=== PATIENT | female | born 1980 | race Two or more races ===

== ENCOUNTER → 2025-08-07 | Outpatient (CLI) | payer BC, SELFPAY ==
[2025-08-07 07:50] LABS: Collection Type, Urine Clean Catch
[2025-08-07 08:39] LABS: Basophils # (Auto) 0.1 Thou/mm3 (0.0-0.2); Basophils % (Auto) 1 % (0-2.5); Eosinophils # (Auto) 0.3 Thou/mm3 (0.0-0.5); Eosinophils % (Auto) 6 % (0-10); Hematocrit 23.1 % (36.0-46.0); Immature Granulocytes Auto 0.03 Thou/mm3 (0.00-0.00); Lymphocytes # (Auto) 2.0 Thou/mm3 (1.0-4.8); Lymphocytes % (Auto) 36 % (10-50); Mean Corpuscular HGB Conc 26.4 g/dl (31.0-37.0); Mean Corpuscular Hemoglobin 16.8 pg (25.0-35.0); Mean Corpuscular Volume 64 fL (80-100); Monocytes # (Auto) 0.4 Thou/mm3 (0.0-0.8); Monocytes % (Auto) 7 % (0-12); Neutrophils # (Auto) 2.8 Thou/mm3 (1.8-7.7); Neutrophils % (Auto) 50 % (37-80); Nucleated Red Blood Cell # 0.00 Thou/mm3 (0.00-0.00); Nucleated Red Blood Cell % 0 /100 WBC (0); Platelet Count 419 Thou/mm3 (140-440); RDW Standard Deviation 44.3 fL (36.4-46.3); Red Blood Count 3.64 Miln/mm3 (4.00-5.20); White Blood Count 5.5 Thou/mm3 (3.6-11.0)
[2025-08-07 08:42] LABS: Bilirubin,Urine Negative (Negative); Blood,Urine Negative (Negative); Clarity,Urine Clear (Clear/Hazy); Color,Urine Lt-Yellow (Lt Yel-Yel); Glucose, Urine Negative (Negative); Ketones,Urine Negative (Negative); Leukocyte Esterase,Urine Negative (Negative); Nitrite,Urine Negative (Negative); PH,Urine 7.5 (5.0-7.0); Protein,Urine Negative (Neg - Trace); RBC,Urine 3 /hpf (0-3); Specific Gravity,Urine 1.018 (1.001-1.035); Squamous Epithelial Cell,Urine 5 /hpf (0-5); Urobilinogen,Urine Negative mg/dL (0.0-1.0); WBC,Urine 1 /hpf (0-5)
[2025-08-07 08:49] LABS: Vitamin B12 341 pg/mL (211-911); Vitamin D 25 Hydroxy Total 28.3 ng/mL (7.3-40.2)
[2025-08-07 08:50] LABS: Ferritin 2 ng/mL (7.3-270.7)
[2025-08-07 08:51] LABS: Alanine Aminotransferase 13 U/L (10-49); Albumin, Serum 4.6 gm/dL (3.5-5.0); Albumin/Globulin Ratio 2.3 (1.2-2.2); Alkaline Phosphatase 52 U/L (46-116); Anion Gap 8 (7-16); Aspartate Amino Transferase 21 U/L (0-34); BUN/Creatinine Ratio 24 Ratio (12-20); Bilirubin,Total 0.5 mg/dL (0.3-1.2); Blood Urea Nitrogen 12 mg/dL (9-23); Calcium 8.8 mg/dL (8.3-10.6); Calcium (Corrected) 8.8 mg/dL (8.5-10.1); Carbon Dioxide 25.6 mMol/L (20.0-31.0); Cardiac Risk Estimate 3.3 RATIO (3.7-5.6); Chloride 106 mMol/L (98-107); Cholesterol 169 mg/dL (132-200); Creatinine (Component) 0.5 mg/dL (0.6-1.3); Globulin 2.0 gm/dL (2.3-3.5); Glucose 94 mg/dL (74-106); HDL Cholesterol 51 mg/dL (40-60); LDL Cholesterol,Calculated 105 mg/dL (0-130); Osmolality,Calculated 279 (275-295); Potassium 4.0 mMol/L (3.4-5.1); Sodium 140 mMol/L (136-145); Thyroid Stimulating Hormone 2.10 uIU/mL (0.55-4.78); Total Protein 6.6 gm/dL (5.7-8.2); Triglycerides 66 mg/dL (30-150); Uric Acid 3.4 mg/dL (3.1-7.8); eGFR > 60 See Note
[2025-08-07 09:01] LABS: Hemoglobin 6.1 g/dL (12.0-16.0)
[2025-08-07 09:57] LABS: Misc Send Out* See Sep Rpt
[2025-08-07 16:29] LABS: Path Review Blood Smear Sent to Pathologist
== END | disposition home or self-care (01) ==
LOC: COPL 07:07
PROVIDERS: PCP Internal Medicine; Referring Provider Internal Medicine; Visit Provider Internal Medicine
DX: Z00.00 Encounter for general adult medical examination without abnormal findings (principal); E78.5 Hyperlipidemia, unspecified
CPT/HCPCS: 36415; 80053; 80061; 81001; 82306; 82607; 82728; 83036; 84443; 84550; 85025

== ENCOUNTER 2025-08-24 07:16 | Emergency (ER) | payer BC, SELFPAY ==
--- NOTE | 2025-08-24 07:22 | XR_ITS ---
Examination: Pelvic ultrasound, transabdominal, complete Technique: Transabdominal ultrasound of the pelvis performed using grayscale imaging Date and time of exam: August 24, 2025, 0838 hours INDICATIONS: Irregular heavy bleeding and cramping beginning 3 days ago FINDINGS: Uterus 12.5 cm Uterine body area fibroid degeneration 3.3 x 2.4 x 5.1 cm Endometrial stripe 21 mm Right ovary obscured by bowel gas Left ovary 4.3 cm arterial flow, 30 x 34 mm cyst IMPRESSION: Uterine area fibroid degeneration 3.3 x 2.4 x 5.1 cm
[2025-08-24 07:24] VITALS: BP 143/91; PULSE 106; RESP 18; TEMP 36.8; O2SAT 100; BMI 25.2
--- NOTE | 2025-08-24 07:25 | PD.EDRME ---
Rapid Medical Screening Exam RME Arrival date/time: 08/24/25 07:16 45-year-old female presents to the Emergency Department today for complaint of vaginal bleeding patient ports heavy bleeding x 3 days patient reports history of anemia requiring transfusion Chief Complaint: Recheck/Abnormal Lab/Rx Vital signs: Vital Signs Temperature 98.3 F 08/24/25 07:24 Pulse Rate 106 H 08/24/25 07:24 Respiratory Rate 18 08/24/25 07:24 Blood Pressure 143/91 H 08/24/25 07:24 Pulse Oximetry (%) 100 08/24/25 07:24 Oxygen Delivery Method Room Air 08/24/25 07:24 Vital signs reviewed by provider: Yes Exam: On exam clinically well-appearing does not appear ill or toxic patient hemodynamically stable Clinical Impression: Lab work and imaging ordered
[2025-08-24 08:04] LABS: Basophils # (Auto) 0.1 Thou/mm3 (0.0-0.2); Basophils % (Auto) 1 % (0-2.5); Eosinophils # (Auto) 0.1 Thou/mm3 (0.0-0.5); Eosinophils % (Auto) 1 % (0-10); Hematocrit 35.4 % (36.0-46.0); Hemoglobin 10.5 g/dL (12.0-16.0); Immature Granulocytes Auto 0.03 Thou/mm3 (0.00-0.00); Lymphocytes # (Auto) 1.6 Thou/mm3 (1.0-4.8); Lymphocytes % (Auto) 16 % (10-50); Mean Corpuscular HGB Conc 29.7 g/dl (31.0-37.0); Mean Corpuscular Hemoglobin 22.2 pg (25.0-35.0); Mean Corpuscular Volume 75 fL (80-100); Monocytes # (Auto) 0.4 Thou/mm3 (0.0-0.8); Monocytes % (Auto) 4 % (0-12); Neutrophils # (Auto) 7.5 Thou/mm3 (1.8-7.7); Neutrophils % (Auto) 77 % (37-80); Nucleated Red Blood Cell # 0.00 Thou/mm3 (0.00-0.00); Nucleated Red Blood Cell % 0 /100 WBC (0); Platelet Count 421 Thou/mm3 (140-440); RDW Standard Deviation 81.9 fL (36.4-46.3); Red Blood Count 4.74 Miln/mm3 (4.00-5.20); White Blood Count 9.8 Thou/mm3 (3.6-11.0)
[2025-08-24 08:21] LABS: Alanine Aminotransferase 13 U/L (10-49); Albumin, Serum 4.7 gm/dL (3.5-5.0); Albumin/Globulin Ratio 2.0 (1.2-2.2); Alkaline Phosphatase 54 U/L (46-116); Anion Gap 11 (7-16); Aspartate Amino Transferase 22 U/L (0-34); BUN/Creatinine Ratio 11 Ratio (12-20); Bilirubin,Total 0.4 mg/dL (0.3-1.2); Blood Urea Nitrogen 8 mg/dL (9-23); Calcium 9.2 mg/dL (8.3-10.6); Calcium (Corrected) 9.2 mg/dL (8.5-10.1); Carbon Dioxide 25.2 mMol/L (20.0-31.0); Chloride 104 mMol/L (98-107); Creatinine (Component) 0.7 mg/dL (0.6-1.3); Estimated Creatinine Clearance 97.7 mL/min (>60); Globulin 2.3 gm/dL (2.3-3.5); Glucose 183 mg/dL (74-106); Osmolality,Calculated 282 (275-295); Potassium 3.6 mMol/L (3.4-5.1); Sodium 140 mMol/L (136-145); Total Protein 7.0 gm/dL (5.7-8.2); eGFR > 60 See Note
[2025-08-24 08:39] LABS: HCG,Qualitative Serum Negative
[2025-08-24 09:10] LABS: INR 1.0 (0.9-1.3); Partial Thromboplastin Time 24.5 Seconds (22.0-36.0); Prothrombin Time 10.5 Seconds (9.0-12.2)
[2025-08-24 10:21] VITALS: BP 121/78; PULSE 77; RESP 18; TEMP 37; O2SAT 100
--- NOTE | 2025-08-24 10:37 | EDNOTE_ITS ---
ED Recheck Abnl Lab Rx-RME/HPI General Chief Complaint: Recheck/Abnormal Lab/Rx Stated Complaint: Vaginal bleeding X 3 days Arrival date/time: 08/24/25 07:16 Limitations: no limitations RME / HPI RME / HPI narrative: 08/24/25 07:16 45-year-old female presents to the Emergency Department today for complaint of vaginal bleeding patient ports heavy bleeding x 3 days patient reports history of anemia requiring transfusion DR. BECERRA MAIN ED EVALUATION: 45-year-old female presents to the Emergency Department with complaint of feeling generally weak while on day 3 of a heavy menstrual period, expected to last 5 days. She reports a history of anemia and low iron and takes iron supplements. She has an upcoming appointment with [facility] scheduled for September 05. She denies fever, chills, nausea, vomiting, or diarrhea. She is accompanied by her . Has an appointment with photographic equipment technician in a few weeks Related Data Previous Rx's ?Medication ?Instructions ?Recorded acetaminophen 325 mg capsule 975 mg (3 x 325 mg) PO Q6 H PRN 04/24/20 pain #30 caps guaifenesin 200 mg tablet 200 mg PO QID #20 tabs 04/24 Allergies Allergy/AdvReac Type Severity Reaction Status Date / Time No Known Allergies Allergy Verified 08/24/25 07:20 Review of Systems Review of Systems Systems Reviewed: All systems reviewed, normal except as documented Past Medical History Social History SMOKING STATUS: Never smoker SUBSTANCE USE: does not use ALCOHOL: Never Past Medical History Comments PMH COMMENT: She reports a history of anemia and low iron and takes iron supplements. ED Exam General Limitations: Present no limitations General appearance: Present alert and in no apparent distress Head Head exam: Present atraumatic, normocephalic and normal inspection Eye Eye exam: Present normal appearance, PERRL and EOMI ENT ENT exam: Present normal exam, normal oropharynx and mucous membranes moist Neck Neck exam: Present normal inspection, full ROM and trachea midline Chest Chest inspection: Present normal inspection and symmetric chest wall rise Respiratory Respiratory exam: Present normal lung sounds bilaterally Cardiovascular Cardiovascular exam: Present regular rate, normal rhythm and normal heart sounds Abdominal Exam Abdominal exam: Present soft; Absent distention, tenderness or guarding Extremities Exam Extremities exam: Present normal inspection and full ROM Neurological Exam Neurological exam: Present alert, oriented X3 and CN II-XII intact Psychiatric Psychiatric exam: Present normal affect Skin Skin exam: Present warm, dry, intact and normal color Course Quality Measures none Orders Category Date Time Status US pelvic complete Stat Exams 08/24/25 07:22 Completed CBC Stat Lab 08/24/25 07:50 Completed Comprehensive Metabolic Panel Stat Lab 08/24/25 07:50 Completed HCG,Qualitative Serum Stat Lab 08/24/25 07:50 Completed Partial Thromboplastin Time Stat Lab 08/24/25 07:50 Completed Prothrombin Time with INR Stat Lab 08/24/25 07:50 Completed Type and Screen Stat Lab 08/24/25 07:50 Completed Vital Signs Vital signs: Vital Signs Temperature 98.3 F 08/24/25 07:24 Pulse Rate 106 H 08/24/25 07:24 Respiratory Rate 18 08/24/25 07:24 Blood Pressure 143/91 H 08/24/25 07:24 Pulse Oximetry (%) 100 08/24/25 07:24 Oxygen Delivery Method Room Air 08/24/25 07:24 Recheck / Abnormal Lab / Rx MDM Narrative MDM Narrative:: IDelaney am scribing for and in the presence of Dr. Becerra. 45-year-old female with generalized weakness during heavy menstrual period and known history of anemia. Vital signs and exam as listed. Concern for anemia, fibroid, pelvic mass among others. Patient abdomen soft and nontender, not peritonitic hemodynamically stable not distressed. Ordered labs pelvic ultrasound. Hemoglobin is 10 with no need for transfusion. Pelvic ultrasound shows fibroid. On reassessment patient hemodynamically stable not distress abdomen soft. Advised patient to continue taking her iron supplementation, as well as to fortify her diet. Advised to call her photographic equipment technician to see if there are a sooner appointment. Given patient does not need blood transfusion, hemoglobin improved from prior, will discharge to home with close return precautions and follow-up with her providers. All questions answered. Patient data External records reviewed:: [facility] previous records Clinical information provided by:: patient and spouse Social determinants that could affect healthcare access:: none Patient has the following chronic illnesses:: She reports a history of anemia and low iron and takes iron supplements. How is presenting disease/condition affected by chronic disease/condition?: exacerbated by Evaluation data The following diagnostics were reviewed and interpreted by me:: lab results and radiology exam(s) Lab and/or radiology exams considered but not ordered:: none Interpretation Summary: See MDM narrative above. RADIOLOGY Procedure(s): US pelvic complete Accession Number(s): [id number] cc: Amanda (LDEA),Darin TOMPKINS; Dieter Avila MD; Don Chamorro MD~ Examination: Pelvic ultrasound, transabdominal, complete Technique: Transabdominal ultrasound of the pelvis performed using grayscale imaging Date and time of exam: August 24, 2025, 0838 hours INDICATIONS: Irregular heavy bleeding and cramping beginning 3 days ago FINDINGS: Uterus 12.5 cm Uterine body area fibroid degeneration 3.3 x 2.4 x 5.1 cm Endometrial stripe 21 mm Right ovary obscured by bowel gas Left ovary 4.3 cm arterial flow, 30 x 34 mm cyst IMPRESSION: Uterine area fibroid degeneration 3.3 x 2.4 x 5.1 cm Dictated By: Dieter Avila MD Medications / Prescriptions Medications or Prescriptions considered but not ordered:: none Medication administrations:: none Consultations Consultation(s) initiated? (list below): No Diagnosis Recheck Differential Diagnosis: other (anemia, heavy menstrual bleeding, and uterine fibroid) Most likely diagnosis given after review of the tests above:: Abnormal uterine bleeding Anemia Fibroid, uterine Admission Indicated Admission indicated?: not indicated Admission Request Was there a request for admission?: No Disposition Plan Disposition Plan: Discharge Discharge Attestation Discharge Attestation: The patient and all family members were given an opportunity to ask questions and understood the discharge instructions. Discharge instructions specifically effects, indications for sooner follow up or return to the emergency department, and the expected course of current diagnosis. Patient condition: Stable Discharge Plan Plan Patient Disposition: HOME (Self Care) Prescriptions/Referrals Prescriptions/Med Rec: No Action acetaminophen 325 mg capsule 975 mg PO Q6H PRN (Reason: pain) Qty: 30 0RF guaifenesin 200 mg tablet 200 mg PO QID Qty: 20 0RF Referrals: Don Chamorro MD [Primary Care Provider, Nephrology] - In 1 week Problem List Clinical Impression: Abnormal uterine bleeding, Anemia, Fibroid, uterine Patient/Caregiver Discharge Instructions Education Materials: Anemia, ED Uterine Fibroids Additional Instructions: Por favor seguir monitoreando noemy sintomas. Si la hemorragia se pone peor, le duele el pecho o demasiado debil,regresar al departamento de emergencias para repetir noemy examenes de rae. Por favor llamar a lares ginecologo para ezio si tiene cristopher antes de Diciembre. Regresar si tiene empeoramiento de sintomas o sintomas de preocupacion. Print Language: Namibian Stand Alone Forms: [employer] Award Info., Patient Portal Info Letter
== END 2025-08-24 11:09 | disposition home or self-care (01) ==
PROVIDERS: Nurse Practitioner Primary Care; Emergency Provider Emergency Medicine; PCP Internal Medicine
DX: N92.0 Excessive and frequent menstruation with regular cycle (principal); D25.9 Leiomyoma of uterus, unspecified; D64.9 Anemia, unspecified
CPT/HCPCS: 36415; 76856; 80053; 84703; 85025; 85610; 85730; 86850; 86900; 86901; 99283

== ENCOUNTER 2025-09-03 06:29 | Emergency (ER) | payer BC, SELFPAY ==
--- NOTE | 2025-09-03 06:32 | EKG_ITS ---
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
[2025-09-03 06:35] VITALS: BP 142/85; PULSE 85; RESP 18; TEMP 36.8; O2SAT 99
--- NOTE | 2025-09-03 06:41 | EDRME_ITS ---
Rapid Medical Screening Exam [facility] Arrival date/time: 09/03/25 06:29 45-year-old female presents to the Emergency Department with complaint of feeling generally weak patient reports heavy menstrual period. She reports a history of anemia and low iron and takes iron supplements. She has an upcoming appointment with [facility] scheduled for September 05. She denies fever, chills, nausea, vomiting, or diarrhea Chief Complaint: Dizziness Vital signs: Vital Signs Temperature 98.2 F 09/03/25 06:35 Pulse Rate 85 09/03/25 06:35 Respiratory Rate 18 09/03/25 06:35 Blood Pressure 142/85 H 09/03/25 06:35 Pulse Oximetry (%) 99 09/03/25 06:35 Oxygen Delivery Method Room Air 09/03/25 06:35 Vital signs reviewed by provider: Yes Exam: On exam patient well-appearing Clinical Impression: Lab work ordered
[2025-09-03 07:39] LABS: Basophils # (Auto) 0.1 Thou/mm3 (0.0-0.2); Basophils % (Auto) 1 % (0-2.5); Eosinophils # (Auto) 0.1 Thou/mm3 (0.0-0.5); Eosinophils % (Auto) 1 % (0-10); Hematocrit 37.8 % (36.0-46.0); Hemoglobin 11.4 g/dL (12.0-16.0); Immature Granulocytes Auto 0.03 Thou/mm3 (0.00-0.00); Lymphocytes # (Auto) 1.0 Thou/mm3 (1.0-4.8); Lymphocytes % (Auto) 9 % (10-50); Mean Corpuscular HGB Conc 30.2 g/dl (31.0-37.0); Mean Corpuscular Hemoglobin 24.4 pg (25.0-35.0); Mean Corpuscular Volume 81 fL (80-100); Monocytes # (Auto) 0.3 Thou/mm3 (0.0-0.8); Monocytes % (Auto) 3 % (0-12); Neutrophils # (Auto) 8.9 Thou/mm3 (1.8-7.7); Neutrophils % (Auto) 87 % (37-80); Nucleated Red Blood Cell # 0.00 Thou/mm3 (0.00-0.00); Nucleated Red Blood Cell % 0 /100 WBC (0); Platelet Count 383 Thou/mm3 (140-440); Red Blood Count 4.67 Miln/mm3 (4.00-5.20); White Blood Count 10.3 Thou/mm3 (3.6-11.0)
[2025-09-03 08:18] LABS: Alanine Aminotransferase 25 U/L (10-49); Albumin, Serum 4.7 gm/dL (3.5-5.0); Alkaline Phosphatase 52 U/L (46-116); Anion Gap 10 (7-16); Aspartate Amino Transferase 24 U/L (0-34); BUN/Creatinine Ratio 15 Ratio (12-20); Bilirubin,Total 0.5 mg/dL (0.3-1.2); Blood Urea Nitrogen 9 mg/dL (9-23); Calcium 9.5 mg/dL (8.3-10.6); Calcium (Corrected) 9.5 mg/dL (8.5-10.1); Carbon Dioxide 26.1 mMol/L (20.0-31.0); Chloride 107 mMol/L (98-107); Creatinine (Component) 0.6 mg/dL (0.6-1.3); Glucose 110 mg/dL (74-106); Osmolality,Calculated 284 (275-295); Potassium 3.8 mMol/L (3.4-5.1); Sodium 143 mMol/L (136-145); eGFR > 60 See Note
[2025-09-03 08:43] LABS: INR 1.0 (0.9-1.3); Partial Thromboplastin Time 24.8 Seconds (22.0-36.0); Prothrombin Time 10.5 Seconds (9.0-12.2)
--- NOTE | 2025-09-03 08:59 | PD.EDDIZZY ---
ED Dizzyness RME/HPI General Chief Complaint: Dizziness Stated Complaint: DIZZINESS,WEAK Time Seen by Provider: 09/03/25 07:01 Arrival date/time: 09/03/25 06:29 RME / HPI RME / HPI Narrative: 09/03/25 06:29 45-year-old female presents to the Emergency Department with complaint of feeling generally weak patient reports heavy menstrual period. She reports a history of anemia and low iron and takes iron supplements. She has an upcoming appointment with [facility] scheduled for September 05. She denies fever, chills, nausea, vomiting, or diarrhea DR. VALENTE MAIN ED EVALUATION 45 year old female presents to the ED for evaluation of global weakness, decreased appetite, and vaginal bleeding beginning last week. Reports she was evaluated here when symptoms first began and diagnosed with uterine fibroid. States yesterday she had fevers, chills, and cramping lower abdominal pain. Expressed concerns today that she may have an infection due to her weakness and decreased appetite. No other associated symptoms reported. Denies fevers today, chest pain, cough, shortness of breath, upper abdominal pain, vaginal discharge, or urinary symptoms. Exam: On exam patient well-appearing Impression: Lab work ordered Related Data Previous Rx's ?Medication ?Instructions ?Recorded acetaminophen 325 mg capsule 975 mg (3 x 325 mg) PO Q6H PRN 04/24/20 pain #30 caps guaifenesin 200 mg tablet 200 mg PO QID #20 tabs 04/24/20 Allergies Allergy/AdvReac Type Severity Reaction Status Date / Time No Known Allergies Allergy Verified 09/03/25 06:30 Review of Systems Review of Systems Systems Reviewed: All systems reviewed, normal except as documented Past Medical History Past Medical History CARDIAC: Negative Congestive Heart Failure RESPIRATORY: Negative Chronic Obstructive Pulmonary Disease (COPD) GENITOURINARY: Negative Renal Disease ENDOCRINE: Negative Diabetes Mellitus Type 1 or Diabetes Mellitus Type 2 Social History SMOKING STATUS: Never smoker SUBSTANCE USE: does not use ED Exam Narrative Physical exam: GENERAL APPEARANCE: alert and oriented x 4, well-developed, well-nourished, no acute distress HEENT: Normocephalic, atraumatic; pupils equal, round, reactive to light; EOMI; mucous membranes pink, moist; oropharynx clear NECK: Supple LUNGS: CTABL; no wheezes, no rales, no rhonchi HEART: Regular rate, regular rhythm; normal S1, S2; no murmurs ABDOMEN: non distended; normal BS; soft, no tenderness, no guarding, no rebound; no masses, no organomegaly, no hernia BACK: no CVA tenderness EXTREMITIES: atraumatic; no edema NEUROLOGIC: awake; alert and oriented x4; cranial nerves II-XII grossly intact; no focal sensory or motor deficits PSYCHIATRIC: appropriate mood and affect SKIN: warm, dry, normal color; no rashes Course Quality Measures none Orders Category Date Time Status EKG (ED ONLY) *Do not use* NOW Care 09/03/25 06:32 Completed EKG (ED Only) Stat Exams 09/03/25 06:32 Draft CBC Stat Lab 09/03/25 07:16 Completed COVID-19 Antigen (In-House) Stat Lab 09/03/25 09:20 Completed Comprehensive Metabolic Panel Stat Lab 09/03/25 07:16 Results HCG,Qualitative Serum Stat Lab 09/03/25 07:16 Results Influenza A & B Rapid Panel Stat Lab 09/03/25 09:20 Completed Partial Thromboplastin Time Stat Lab 09/03/25 07:16 Completed Prothrombin Time with INR Stat Lab 09/03/25 07:16 Completed Type and Screen Stat Lab 09/03/25 07:16 Completed UA, C/S IF [Urinalysis, C/S if Indicated] Stat Lab 09/03/25 08:30 Completed Vital Signs Vital signs: Vital Signs Temperature 98.2 F 09/03/25 06:35 Pulse Rate 85 09/03/25 06:35 Respiratory Rate 18 09/03/25 06:35 Blood Pressure 142/85 H 09/03/25 06:35 Pulse Oximetry (%) 99 09/03/25 06:35 Oxygen Delivery Method Room Air 09/03/25 06:35 Pulse ox is 99% on room air which is adequate. Dizziness MDM Narrative MDM Narrative:: Bibiana Salinas am scribing for and in the presence of Dr. Valente. Patient data External records reviewed:: [facility] previous records Clinical information provided by:: patient Social determinants that could affect healthcare access:: none Patient has the following chronic illnesses:: No chronic medical hx reported How is presenting disease/condition affected by chronic disease/condition?: no chronic disease Evaluation data The following diagnostics were reviewed and interpreted by me:: lab results and EKG tracing(s) (EKG @ 06:37 AM, normal sinus rhythm, rate 77, no STEMI) Lab and/or radiology exams considered but not ordered:: None Interpretation Summary: Labs are unremarkable, hemoglobin 11.4 Covid and influenza are negative Medications / Prescriptions Medications or Prescriptions considered but not ordered:: None Medication administrations:: None Consultations Consultation(s) initiated? (list below): No Diagnosis Most likely diagnosis given after review of the tests above:: Generalized weakness Admission Indicated Admission indicated?: not indicated Explain why admission is indicated or not indicated:: With no condition needing emergent intervention, there was no indication for admission. Admission Request Was there a request for admission?: No Disposition Plan Disposition Plan: Discharge Discharge Attestation Discharge Attestation: The patient and all family members were given an opportunity to ask questions and understood the discharge instructions. Discharge instructions specifically effects, indications for sooner follow up or return to the emergency department, and the expected course of current diagnosis. Patient condition: Stable Discharge Plan Plan Patient Disposition: HOME (Self Care) Prescriptions/Referrals Prescriptions/Med Rec: No Action acetaminophen 325 mg capsule 975 mg PO Q6H PRN (Reason: pain) Qty: 30 0RF guaifenesin 200 mg tablet 200 mg PO QID Qty: 20 0RF Referrals: Don Chamorro MD [Primary Care Provider, Nephrology] - In 1 week Problem List Clinical Impression: Generalized weakness Patient/Caregiver Discharge Instructions Education Materials: ED Weakness (Uncertain Cause) Print Language: [place]an Stand Alone Forms: [employer] Award Info., Patient Portal Info Letter
[2025-09-03 09:33] LABS: Collection Type, Urine Clean Catch; Squamous Epithelial Cell,Urine 0 /hpf (0-5)
[2025-09-03 09:38] VITALS: BP 115/77; PULSE 65; RESP 16; TEMP 36.9; O2SAT 99
[2025-09-03 09:49] LABS: Bilirubin,Urine Negative (Negative); Blood,Urine 3+ (Negative); Culture Indicated,Urine Not Indicated; Glucose, Urine Negative (Negative); Ketones,Urine Negative (Negative); Leukocyte Esterase,Urine Positive (Negative); Nitrite,Urine Negative (Negative); PH,Urine 6.0 (5.0-7.0); Protein,Urine 1+ (Neg - Trace); RBC,Urine 5288 /hpf (0-3); Specific Gravity,Urine 1.024 (1.001-1.035); Urobilinogen,Urine Negative mg/dL (0.0-1.0); WBC,Urine 4 /hpf (0-5)
[2025-09-03 09:51] LABS: Clarity,Urine Cloudy (Clear/Hazy); Color,Urine Lt-Yellow (Lt Yel-Yel)
[2025-09-03 10:01] LABS: COVID-19 Antigen (In-House) Negative (Negative); Influenza A Ag Negative; Influenza B Ag Negative
[2025-09-03 10:43] VITALS: BP 121/79; PULSE 69; RESP 16; TEMP 36.9; O2SAT 100
[2025-09-03 12:52] LABS: Albumin/Globulin Ratio 1.7 (1.2-2.2); Globulin 2.7 gm/dL (2.3-3.5); Total Protein 7.4 gm/dL (5.7-8.2)
[2025-09-03 14:21] LABS: HCG,Qualitative Serum Negative
== END 2025-09-03 10:45 | disposition home or self-care (01) ==
PROVIDERS: Nurse Practitioner Primary Care; Emergency Provider Emergency Medicine; PCP Internal Medicine
DX: R53.1 Weakness (principal); R94.31 Abnormal electrocardiogram [ECG] [EKG]
CPT/HCPCS: 36415; 80053; 81001; 84703; 85025; 85610; 85730; 86850; 86900; 86901; 87502; 87811; 93005; 99282

== ENCOUNTER → 2025-09-12 | Outpatient (CLI) | payer BC, SELFPAY ==
[2025-09-13 12:02] LABS: BVAG Candida Negative (Negative); Bacterial Vaginosis Markers Negative (Negative); Candida glabrata Negative (Negative); Candida krusei PCR Negative (Negative); Trichomonas Negative (Negative)
== END | disposition home or self-care (01) ==
LOC: SLDO 14:18
PROVIDERS: Referring Provider Specialist; Visit Provider Specialist
DX: B37.89 Other sites of candidiasis (principal); N76.0 Acute vaginitis; A59.01 Trichomonal vulvovaginitis
CPT/HCPCS: 81514